=== PATIENT | male | born 1995 | race Two or more races ===

== ENCOUNTER 2017-12-16 08:29 | Day surgery (SDC) | payer SELFPAY ==
[~2017-12-16 08:29] MED LIST: LIDOCAINE 1% PF 2 ML VIAL. ID; MORPHINE SULFATE 2 MG/ML DISP.SYRIN. IV; ONDANSETRON PF 4 MG/2 ML VIAL. IV; PROCHLORPERAZINE 10 MG/2 ML VIAL. IV; ceFAZolin 2GM PREMIX 2 GM/50 ML BAG IV; fentaNYL PF VIAL 100 MCG/2 ML VIAL IV
[2017-12-16] MEDS ORDERED: fentaNYL PF VIAL 250 MCG/5 ML VIAL ×2 (08:35)
[2017-12-16] MEDS ORDERED: MIDAZOLAM HCL/PF 2 MG/2 ML VIAL. ×2 (08:35)
[2017-12-16] MEDS ORDERED: ONDANSETRON PF 4 MG/2 ML VIAL. ×2 (08:36)
[2017-12-16] MEDS ORDERED: GLYCOPYRROLATE 1 MG/5 ML VIAL. ×2 (08:36)
[2017-12-16] MEDS ORDERED: LIDOCAINE 2% PF Vial for OR 5 ML VIAL. ×2 (08:36)
[2017-12-16] MEDS ORDERED: KETOROLAC 30 MG/ML INJ FOR OR. INJ ×2 (08:36)
[2017-12-16] MEDS ORDERED: NEOSTIGMINE METHYLSULFATE 5 MG/5 ML SYRINGE. ×2 (08:36)
[2017-12-16] MEDS ORDERED: ROCURONIUM 50 MG/5 ML VIAL. ×4 (08:36→10:52)
[2017-12-16] MEDS ORDERED: PROPOFOL 20 ML IV ×2 (08:36)
[2017-12-16] MEDS ORDERED: DEXAMETHASONE SOD PHOS 20 MG/5 ML VIAL. ×2 (08:36)
[2017-12-16] MEDS: IV RINGERS,LACTATED 1000ML 1,000 ML IV ×2 (09:06)
[2017-12-16] MEDS: BUPIVACAINE-EPI 0.25%-1:200000 50 ML VIAL. ×2 (10:09)
[2017-12-16] MEDS: oxyCODONE/APAP 5/325 1 TAB TABLET PO ×2 (12:13)
== END 2017-12-16 13:14 | disposition home or self-care (01) ==
LOC: SURG 08:29
DX: K40.90 Unilateral inguinal hernia, without obstruction or gangrene, not specified as recurrent (principal); F17.200 Nicotine dependence, unspecified, uncomplicated
CPT/HCPCS: 49650; C1781; J0690; J1100; J1885; J2250; J2405; J2704; J2710; J3010; J3490; J7120